=== PATIENT | female | born 1945 ===

== ENCOUNTER 2021-08-27 06:19 | Day surgery (SDC) | payer OTHER ==
[~2021-08-27] VITALS: Ht 152.4 cm; Wt 73.5 kg
[~2021-08-27 06:19] MED LIST: ADULT ASPIRIN81 MG; CLONAZEPAM1 MG PO; COZAAR50 MG PO; DOCUSATE SODIU100 MG PO; EVISTA60 MG; FOSAMAX70 MG PO; LOSARTAN-HCTZ1 EACH PO; PERCOCET 5/3251 TAB PO; TOPROL XL25 MG PO; ZOCOR20 MG
== END 2021-08-27 20:40 | disposition home or self-care (01) ==
LOC: CIR.AMB 06:19
PROVIDERS: ATTEND Surgery
DX: C50.912 Malignant neoplasm of unspecified site of left female breast (principal); R59.0 Localized enlarged lymph nodes; Z20.822 Contact with and (suspected) exposure to COVID-19; Z88.0 Allergy status to penicillin; Z88.8 Allergy status to other drugs, medicaments and biological substances; I10 Essential (primary) hypertension; Z86.16 Personal history of COVID-19
CPT/HCPCS: 19301; 19281; 38525; 78195; A9541; L8699